=== PATIENT | female | born 1970 | race Two or more races ===

== ENCOUNTER 2018-02-03 10:45 | Outpatient (CLI) | payer OTHER | END 2018-02-03 15:37 | disposition home or self-care (01) | LOC: RAD 10:45 | DX: C18.6 Malignant neoplasm of descending colon (principal); R59.0 Localized enlarged lymph nodes; R10.84 Generalized abdominal pain ==

== ENCOUNTER 2018-02-11 14:48 | Inpatient (IN) | payer OTHER ==
[2018-02-20] MEDS ORDERED: INTEGRA F CAPS1 EACH PO (11:37)
[2018-02-20] MEDS ORDERED: INTESTINEX680 M1 PO (11:37)
[2018-02-20] MEDS ORDERED: PERCOCET 5-3251 EACH PO (11:37)
[2018-02-20] MEDS ORDERED: OMEPRAZOLE20 MG PO (11:37)
[2018-02-21] MEDS ORDERED: OXYCODONE HCL E10 MG PO (10:59)
== END 2018-02-20 12:45 | disposition home or self-care (01) | DRG 331 ==
LOC: O/R 02-16 06:42 → SURG 02-16 07:00
PROVIDERS: Surgery
PROC: 07TC4ZZ Resection of Pelvis Lymphatic, Percutaneous Endoscopic Approach (ICD-10-PCS; 2018-02-16)
PROC: 0DJD8ZZ Inspection of Lower Intestinal Tract, Via Natural or Artificial Opening Endoscopic (ICD-10-PCS; 2018-02-16)
PROC: 0DTN4ZZ Resection of Sigmoid Colon, Percutaneous Endoscopic Approach (ICD-10-PCS; principal; 2018-02-16 07:00)
DX: C18.7 Malignant neoplasm of sigmoid colon (principal); R59.0 Localized enlarged lymph nodes; D50.8 Other iron deficiency anemias; Z53.29 Procedure and treatment not carried out because of patient's decision for other reasons

== ENCOUNTER 2018-02-15 06:43 | Day surgery (SDC) | payer OTHER ==
[2018-02-21] MEDS ORDERED: OXYCODONE HCL E10 MG PO (10:59)
== END 2018-02-15 10:00 | disposition home or self-care (01) ==
LOC: AMB-ENDOS 06:43
DX: C18.6 Malignant neoplasm of descending colon (principal); R59.0 Localized enlarged lymph nodes

== ENCOUNTER 2018-03-26 08:00 | Day surgery (SDC) | payer OTHER ==
[~2018-03-26 08:00] MED LIST: DOLOGEN CAPLET1 EACH PO; INTEGRA F CAPS1 EACH PO; INTESTINEX680 M1 PO; OMEPRAZOLE20 MG PO; OXYCODONE HCL E10 MG PO; PERCOCET 5-3251 EACH PO
[2018-03-26] MEDS ORDERED: CODE1TAB37 PO (11:16)
[2018-03-26] MEDS ORDERED: DICLOFENAC SODI50 MG PO (11:16)
== END 2018-03-26 12:35 | disposition home or self-care (01) ==
LOC: CIR.AMB 08:00
DX: C18.6 Malignant neoplasm of descending colon (principal)
CPT/HCPCS: 36561; C1751

== ENCOUNTER 2018-11-15 06:59 | Day surgery (SDC) | payer OTHER ==
[~2018-11-15 06:59] MED LIST changes: +CODE1TAB37 PO; +DICLOFENAC SODI50 MG PO
== END 2018-11-15 10:35 | disposition home or self-care (01) ==
LOC: AMB-ENDOS 06:59
DX: C18.6 Malignant neoplasm of descending colon (principal)

== ENCOUNTER 2020-10-22 07:11 | Day surgery (SDC) | payer OTHER ==
[~2020-10-22 07:11] MED LIST changes: +RESTORIL PO
== END 2020-10-22 14:00 | disposition home or self-care (01) ==
LOC: AMB-ENDOS 07:11
PROVIDERS: ATTEND Surgery
DX: K63.5 Polyp of colon (principal); Z20.822 Contact with and (suspected) exposure to COVID-19

== ENCOUNTER 2020-10-26 06:13 | Day surgery (SDC) | payer OTHER | END 2020-10-26 11:15 | disposition home or self-care (01) | LOC: CIR.AMB 06:13 | PROVIDERS: ATTEND Surgery | DX: C18.6 Malignant neoplasm of descending colon (principal); Z20.822 Contact with and (suspected) exposure to COVID-19 ==